=== PATIENT | male | born 1990 | race Caucasian/White ===

== ENCOUNTER → 2018-09-03 | Outpatient (CLI) | payer OTHER ==
[2018-09-03 17:11] LABS: BASOPHILS ABSOLUTE AUTO 0.06 K/mm3 (0.00-0.23); BASOPHILS PERCENT AUTO 1 % (0-2); EOSINOPHILS ABSOLUTE AUTO 0.31 K/mm3 (0.00-0.68); EOSINOPHILS PERCENT AUTO 3 % (0-6); Hemoglobin 15.5 g/dL (13.5-17.5); IMMATURE GRAN ABSOLUTE AUTO 0.03 K/mm3 (0.00-0.10); IMMATURE GRAN PERCENT AUTO 0 % (0-1); LYMPHOCYTES ABSOLUTE AUTO 2.14 K/mm3 (0.84-5.20); LYMPHOCYTES PERCENT AUTO 22 % (21-46); MONOCYTES ABSOLUTE AUTO 0.73 K/mm3 (0.16-1.47); MONOCYTES PERCENT AUTO 7 % (4-13); Mean Corpuscular HGB 30.3 pg (26.0-34.0); Mean Corpuscular HGB Conc 33.7 g/dL (31.5-36.5); Mean Corpuscular Volume 90 fL (80-100); NEUTROPHILS ABSOLUTE AUTO 6.64 K/mm3 (1.96-9.15); NEUTROPHILS PERCENT AUTO 67 % (41-73); Platelet Count 203 K/mm3 (150-400); RDW Coefficient Variation 13.7 % (11.7-14.2); RDW Standard Deviation 45.3 fL (35.1-46.3); Red Blood Cell Count 5.12 M/mm3 (4.30-5.90); White Blood Cell Count 9.91 K/mm3 (4.00-11.30)
[2018-09-03 17:30] LABS: Alanine Aminotransfer (ALT/SGP 23 U/L (12-78); Albumin/Globulin Ratio 1.2 (0.8-1.8); Alk Phos 86 U/L (40-126); Anion Gap 8 mmol/L (6-16); Aspartate Aminotrans (AST/SGOT 18 U/L (12-37); Bilirubin, Total 0.6 mg/dL (0.1-1.0); Blood Urea Nitrogen 21 mg/dL (8-24); CO2, Blood 30 mmol/L (21-32); Calcium, Blood 8.4 mg/dL (8.5-10.1); Chloride, Blood 104 mmol/L (98-108); Globulin, Blood 3.4 g/dL (2.2-4.0); Glomerular Filtration Rate >60 (60-); Glucose, Blood 112 mg/dL (70-99); Potassium, Blood 3.9 mmol/L (3.5-5.5); Sodium, Blood 142 mmol/L (136-145); Total Protein, Blood 7.4 g/dL (6.4-8.2)
== END | disposition home or self-care (01) ==
LOC: LAB SHORT 17:04 → LAB EV 17:04
PROVIDERS: Physician Assistant Surgical
DX: R10.13 Epigastric pain (principal)
CPT/HCPCS: 80053; 83690; 85025

== ENCOUNTER → 2021-04-30 | Outpatient (CLI) | payer OTHER | LOC: LAB SHORT 10:00 → LAB 10:00 | DX: D48.5 Neoplasm of uncertain behavior of skin (principal); B07.0 Plantar wart; L02.426 Furuncle of left lower limb; L02.425 Furuncle of right lower limb; L85.3 Xerosis cutis; L70.0 Acne vulgaris; L08.9 Local infection of the skin and subcutaneous tissue, unspecified; Z71.89 Other specified counseling | CPT/HCPCS: 87070; 87077; 87186; 87205 ==

== ENCOUNTER → 2023-05-19 | Outpatient (CLI) | payer OTHER | END | disposition home or self-care (01) | LOC: LAB 08:30 | DX: R31.9 Hematuria, unspecified (principal) | CPT/HCPCS: 87086 ==

== ENCOUNTER → 2024-04-13 | Outpatient (CLI) | payer OTHER | END | disposition home or self-care (01) | LOC: LAB SHORT 12:19 → LAB 12:19 | DX: R31.9 Hematuria, unspecified (principal) | CPT/HCPCS: 87086 ==

== ENCOUNTER 2024-06-05 22:52 | Emergency (ER) | payer OTHER ==
[~2024-06-05] VITALS: Ht 177.8 cm; Wt 79.4 kg
[2024-06-05 23:08] VITALS: BP 145/96
[2024-06-06] MEDS ORDERED: Ketorolac Tromethamine 30mg Vial IM ONE (00:25)
[2024-06-06 00:31] LABS: Influenza B, PCR NEGATIVE (NEGATIVE); Resp Syncytial Virus, PCR NEGATIVE (NEGATIVE); SARS-Cov-2 (COVID-19) PCR, MMC NEGATIVE (NEGATIVE)
[2024-06-06 01:21] LABS: Influenza A, PCR POSITIVE (NEGATIVE)
== END 2024-06-06 00:17 | disposition home or self-care (01) ==
LOC: ER 22:52
PROVIDERS: Physician Assistant
DX: J10.1 Influenza due to other identified influenza virus with other respiratory manifestations (principal); Z91.013 Allergy to seafood; Z11.52 Encounter for screening for COVID-19
CPT/HCPCS: 0241U; 71046; 96372; 99285-25; J1885

== ENCOUNTER 2024-09-15 08:30 | Observation (INO) | payer OTHER ==
[~2024-09-15] VITALS: Ht 177.8 cm; Wt 74.8 kg
[2024-09-15 11:57] LABS: BASOPHILS ABSOLUTE AUTO 0.07 K/mm3 (0.00-0.23); BASOPHILS PERCENT AUTO 1 % (0-2); EOSINOPHILS ABSOLUTE AUTO 0.01 K/mm3 (0.00-0.68); EOSINOPHILS PERCENT AUTO 0 % (0-6); Hematocrit 46.1 % (37.0-53.0); Hemoglobin 15.9 g/dL (13.5-17.5); IMMATURE GRAN ABSOLUTE AUTO 0.02 K/mm3 (0.00-0.10); IMMATURE GRAN PERCENT AUTO 0 % (0-1); LYMPHOCYTES ABSOLUTE AUTO 1.69 K/mm3 (0.84-5.20); LYMPHOCYTES PERCENT AUTO 18 % (21-46); MONOCYTES PERCENT AUTO 6 % (4-13); Mean Corpuscular HGB 30.8 pg (26.0-34.0); Mean Corpuscular HGB Conc 34.5 g/dL (31.5-36.5); Mean Corpuscular Volume 89 fL (80-100); NEUTROPHILS ABSOLUTE AUTO 7.07 K/mm3 (1.96-9.15); NEUTROPHILS PERCENT AUTO 75 % (41-73); Platelet Count 198 K/mm3 (150-400); RDW Coefficient Variation 13.2 % (11.7-14.2); RDW Standard Deviation 43.3 fL (35.1-46.3); Red Blood Cell Count 5.16 M/mm3 (4.30-5.90); White Blood Cell Count 9.46 K/mm3 (4.00-11.30)
[2024-09-15 12:16] LABS: Source, Urine Clean Catch
[2024-09-15 12:25] LABS: Appearance, Urine Hazy (Clear); Bilirubin, Urine Neg (Neg); Blood, Urine 4+ (Neg); Color, Urine Yellow (P-Yellow); Glucose Qualitative, Urine Neg (Neg); Ketones, Urine 4+ (Neg); Leukocyte Esterase, Urine 2+ (Neg); Nitrite, Urine Neg (Neg); Protein, Urine 2+ (Neg); Specific Gravity, Urine 1.015 (1.003-1.022); Urobilinogen, Urine 2+ (Normal)
[2024-09-15 12:34] LABS: Acetaminophen, Random <2.0 ug/mL (10.0-30.0); Alanine Aminotransfer (ALT/SGP 21 U/L (12-78); Albumin, Blood 4.3 g/dL (3.4-5.0); Albumin/Globulin Ratio 1.4 (0.8-1.8); Alk Phos 59 U/L (50-136); Anion Gap 10 mmol/L (3-11); Aspartate Aminotrans (AST/SGOT 21 U/L (12-37); Bilirubin, Total 1.1 mg/dL (0.1-1.0); Blood Urea Nitrogen 11 mg/dL (8-24); Bun/Creatinine Ratio 11.3 (12.0-20.0); CO2, Blood 24 mmol/L (21-32); Calcium, Blood 8.6 mg/dL (8.5-10.1); Chloride, Blood 105 mmol/L (98-108); Creatinine, Blood 0.97 mg/dL (0.60-1.20); Ethanol (Alcohol), Blood, Med 4 mg/dL; Glomerular Filtration Rate 107 (60-); Glucose, Blood 94 mg/dL (70-99); Potassium, Blood 3.4 mmol/L (3.5-5.5); Salicylate <1.7 mg/dL (2.8-20.0); Sodium, Blood 136 mmol/L (136-145); Total Protein, Blood 7.3 g/dL (6.4-8.2)
[2024-09-15 12:41] LABS: U Amphetamine Screen Not Detected; U Barbituate Screen Not Detected; U Benzodiazapine Screen Not Detected; U Buprenorphine Screen Not Detected; U Cannabinoids Screen Not Detected; U Cocaine Screen Not Detected; U Methadone Screen Not Detected; U Methamphetamine Screen Not Detected; U Opiates Screen Not Detected; U Oxycodone Screen Not Detected; U Phencyclidine Screen Not Detected
[2024-09-15 12:47] LABS: Amorphous Light (0-Heavy); Bacteria Many /hpf; Squamous Epithelial Cells Few /hpf (Few)
[2024-09-15] MEDS ORDERED: Cephalexin Monohydrate 500 MG Cap PO SCH (21:00)
[2024-09-16 07:33] VITALS: BP 147/95
[2024-09-16] MEDS ORDERED: CEPH500 PO (14:16)
== END 2024-09-16 23:00 | disposition home or self-care (01) ==
LOC: ER 08:30 → EOR 08:31
PROVIDERS: ADMIT Student in an Organized Health Care Education/Training Program
DX: F34.9 Persistent mood [affective] disorder, unspecified (principal); F23 Brief psychotic disorder
CPT/HCPCS: 36415; 70450; 80053; 80320; 81001; 85025; 87077; 87086; 87186; 99285-25; A9270; G0378; G0480

== ENCOUNTER 2024-09-15 17:09 | Inpatient (IN) | payer OTHER ==
[~2024-09-15] VITALS: Ht 177.8 cm; Wt 73.8 kg
[2024-09-16] MEDS ORDERED: Ibuprofen 600 MG Tab PO PRN (08:50)
[2024-09-16] MEDS ORDERED: Haloperidol Lactate Inj. 5 MG/ML Injection IM PRN (08:50)
[2024-09-16] MEDS ORDERED: Ondansetron 4 MG SoluTab MM PRN (08:50)
[2024-09-16] MEDS ORDERED: Melatonin 3 MG Tab PO PRN (08:50)
[2024-09-16] MEDS ORDERED: Aluminum Hydroxide 320MG/5ML 473 ML PO PRN (08:50)
[2024-09-16] MEDS ORDERED: OLANZapine ODT 10 MG Tab MM PRN (08:50)
[2024-09-16] MEDS ORDERED: DiphenhydrAMINE HCl 50 MG/ML 1ML Vial IM PRN (08:50)
[2024-09-16] MEDS ORDERED: HydrOXYzine Pamoate 50 MG Cap PO PRN (08:50)
[2024-09-16] MEDS ORDERED: LORazepam 2 MG/ML 1ML Injection IM PRN (08:50)
[2024-09-16] MEDS ORDERED: Acetaminophen 325 MG TABLET PO PRN (08:50)
[2024-09-16] MEDS ORDERED: Calcium Carbonate 500 MG Tab Chew PO PRN (08:50)
[2024-09-16] MEDS ORDERED: TraZODone HCl 50 MG Tab PO PRN (08:50)
[2024-09-16] MEDS ORDERED: Polyethylene Glycol 3350 17 gm PO PRN (08:50)
[2024-09-16] MEDS ORDERED: DiphenhydrAMINE HCl 50 MG Cap PO PRN (08:50)
[2024-09-16] MEDS ORDERED: FLU VACC TS2024-25(6MOS UP)/PF 45 MCG/0.5 ML SYRINGE IM SCH (08:50)
[2024-09-16] MEDS ORDERED: LORazepam 1 MG Tab PO PRN (08:55)
[2024-09-16] MEDS ORDERED: Haloperidol 5 MG Tab PO PRN (08:55)
[2024-09-16] MEDS ORDERED: Multivitamins 1 Tab PO SCH (09:00)
--- NOTE | 2024-09-16 12:20 | NUR ---
ADMISSION NOTE PT ARRIVES TO [facility] FROM [facility] ED, ESCORTED BY SECURITY AND [facility]. SKIN CHECK WAS PERFORMED BY LILIANA SPEARS AND VENTURA SPEARS. PT HAS NO NOTABLE LESIONS, WOUNDS, OR RASHES. HE DRESSED HIMSELF IN [facility] SCRUBS. PT WAS THEN GIVEN A TOUR OR THE UNIT AND HIS ROOM. PT WAS A&O X4 DURING THE INTAKE AND HE WAS COOPERATIVE AND SIGNED FORMS. PT STATES HE WAS BROUGHT TO ED D/T A CONFUSION OF THE EUPHORIC FEELING HE WAS EXPERIECING. HE FELT IT MEANT THE RAPTURE OF GOD WAS COMING AND HE ASSOCIATES THIS EUPHORIC FEELING WITH BEING DEHYDRATED AND HAVING A UTI. PT STATES HE HAS HX OF UTI'S AND DEHYDRATION. HE STATES HE HAS HAD ONE OTHER EPISODE SIMILAR BUT IN THE PAST HE EXPERIENCED AN EPISODE OF OCD. PT DENIES ANY SI/HI/AVTH AND IS CALM AND INSIGHTFUL. HE HAS NO OBVIOUS DELUSIONS OR PARANOIA DURING INTAKE PROCESS. ALL QUESTIONS ANSWERED AND PT'S STATED DESIRE TO D/C HOME, WITH HIS PARENTS WHOM HE LIVES WITH, HAS BEEN INFORMED TO . PARENTS HAVE BEEN TO [facility] WANTING TO VISIT PT WHILE THIS RN WAS COMPLETING THE INTAKE PROCESS. PARENTS WERE ADDRESSED BY MARLA DHILLON RN.
[2024-09-16] MEDS ORDERED: CEPH500 PO (14:16)
--- NOTE | 2024-09-16 14:31 | NUR ---
DISCHARGE SUMMARY PT'S PARENTS NOTIFIED OF PT BIENG D/C'D HOME, PER PT REQUEST FOR RIDE HOME. V/O TO CALL IN KEFLEX 500 MG PO BID X13 TABS TO [facility] ACCEPTED FROM DR. JENKINS. THIS IS TO CONTINUE THE FULL COURSE THAT WAS STARTED IN THE ED PRIOR TO U ARRIVAL FOR UTI. PT STATES HE UNDERSTANDS TO COMPLETE FULL COURSE OF ABX AND DRINK PLENTY OF WATER. D/C FOR SIGNED AND IN CHART. PT GIVEN BELONGING BY A AND DRESSED SELF IN OWN CLOTHING. HE AMBULATED OUT OF U ESCORTED BY A, TO MEET HIS PARENTS FOR TRANSPORT HOME.
== END 2024-09-16 14:30 | disposition home or self-care (01) | DRG 885 ==
LOC: BHU 17:09
PROVIDERS: ADMIT Psychiatry & Neurology Psychiatry
DX: F34.9 Persistent mood [affective] disorder, unspecified (principal); Z87.440 Personal history of urinary (tract) infections; Z91.013 Allergy to seafood